=== PATIENT | male | born 1995 | race Caucasian/White ===

== ENCOUNTER → 2020-05-30 | Outpatient (CLI) | payer OTHER ==
--- NOTE | 2020-05-31 09:38 | KCIC ---
EXAMINATION: LOWER EXT JOINT WO LT INDICATIONS: Rolled left ankle laterally on 05/13/2020. Pain is lateral. TECHNIQUE: Multiplanar multisequence MRI of the left ankle was obtained without contrast. COMPARISON: Left ankle radiograph 05/22/2020 FINDINGS: BONES AND CARTILAGE: There is no acute fracture. Marrow signal is normal. The talar dome is intact. No osteochondral lesion. TENDONS: There is a longitudinal split tear of the peronus brevis tendon from the retromalleolar groove to just before the peroneal tubercle of the calcaneus, mild thickening of the peroneus longus consistent with tendinopathy, and peroneal tenosynovitis. There is mild thickening of the posterior tibial tendon distally. There is a tiny longitudinal split tear of the distal Achilles tendon with a small amount retrocalcaneal bursal fluid. The anterior extensor tendons are intact. LIGAMENTS: Anterior talofibular and calcaneofibular ligaments are completely torn. The posterior talofibular ligament is intact. The anterior inferior and posterior inferior tibiofibular ligaments are intact. There is a partial tear of the proximal superficial deltoid ligament and partial tear of the deep deltoid ligament. OTHER:Sinus tarsi and tarsal tunnel are intact. Plantar fascia is intact. Muscles are normal in signal and bulk. There is mild subcutaneous edema medially and laterally, greatest laterally. IMPRESSION: 1. Complete tear of the anterior talofibular ligament and calcaneofibular ligament. 2. Partial tears of the superficial and deep deltoid ligament. 3. Longitudinal split tear of the peroneus brevis tendon, peroneus longus tendinopathy, and peroneal tenosynovitis. 4. Mild tendinopathy of the distal posterior tibial tendon. 4. Tiny longitudinal split tear of the Achilles tendon. Electronically signed by: Cherie Pascal MD (05/31/2020 9:35 AM) [id number]
== END ==
LOC: KCIC MRI 14:09
PROVIDERS: ATTEND Orthopaedic Surgery
DX: S93.492A Sprain of other ligament of left ankle, initial encounter (principal); S93.412A Sprain of calcaneofibular ligament of left ankle, initial encounter; S93.422A Sprain of deltoid ligament of left ankle, initial encounter; S86.312A Strain of muscle(s) and tendon(s) of peroneal muscle group at lower leg level, left leg, initial encounter; S86.012A Strain of left Achilles tendon, initial encounter; M65.872 Other synovitis and tenosynovitis, left ankle and foot; X58.XXXA Exposure to other specified factors, initial encounter; Y93.89 Activity, other specified; Y92.89 Other specified places as the place of occurrence of the external cause; Y99.8 Other external cause status
CPT/HCPCS: 73721

== ENCOUNTER → 2020-07-20 | Outpatient (CLI) | payer OTHER | LOC: LAB 10:23 | PROVIDERS: ATTEND Orthopaedic Surgery | DX: Z01.812 Encounter for preprocedural laboratory examination (principal); Z20.828 Contact with and (suspected) exposure to other viral communicable diseases | CPT/HCPCS: U0003 ==

== ENCOUNTER 2020-07-24 08:13 | Day surgery (SDC) | payer OTHER ==
--- NOTE | 2020-07-23 16:00 | PDOC1 ---
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 Planted his ankle awkwardly and felt a pop. Severe pain and had to be helped off the field. Painful and swollen since then. Continues to have pain and instability despite nonoperative treatment. MRI shows peroneal brevis longitudinal split tear and torn ankle ligaments. Past Medical History Past Medical History none Past Surgical History Past Surgical History none Social History Smoke: No ALCOHOL: occassional Current Medications Current Medications Current Medications Ondansetron HCl (Zofran) 4 mg PRN Q6HRS PRN IV NAUSEA/VOMITING; Start 07/24/20 at 07:00; Stop 07/25/20 at 06:59 Fentanyl Citrate (Fentanyl 2ml Vial) 25 mcg PRN Q5MIN PRN IV MILD PAIN 1-3; Start 07/24/20 at 07:00; Stop 07/25/20 at 06:59 Fentanyl Citrate (Fentanyl 2ml Vial) 50 mcg PRN Q5MIN PRN IV MODERATE TO SEVERE PAIN; Start 07/24/20 at 07:00; Stop 07/25/20 at 06:59 Morphine Sulfate (Morphine Sulfate) 1 mg PRN Q10MIN PRN IV SEVERE PAIN 7-10; Start 07/24/20 at 07:00; Stop 07/25/20 at 06:59 Ringer's Solution 1,000 ml @ 30 mls/hr Q24H IV ; Start 07/24/20 at 07:00; Stop 07/24/20 at 18:59 Lidocaine HCl (Xylocaine-Mpf 1% 2ml Vial) 2 ml PRN 1X PRN ID PRIOR TO IV START; Start 07/24/20 at 07:00; Stop 07/25/20 at 06:59 Hydromorphone HCl (Dilaudid) 0.5 mg PRN Q10MIN PRN IV SEV PAIN, Second choice; Start 07/24/20 at 07:00; Stop 07/25/20 at 06:59 Prochlorperazine Edisylate (Compazine) 5 mg PACU PRN PRN IV NAUSEA, MRX1; Start 07/24/20 at 07:00; Stop 07/25/20 at 06:59 Bupivacaine HCl/ Epinephrine Bitart (Sensorcaine-Epi 0.25%-1:[id number] Mpf) 30 ml 1X ONCE INJ ; Start 07/24/20 at 06:00; Stop 07/24/20 at 06:01 Cefazolin Sodium 3 gm/Sodium Chloride 100 ml @ 200 mls/hr 1X PREOP PRN IV PRIOR TO PROCEDURE; Start 07/24/20 at 06:00; Stop 07/24/20 at 15:00 Allergies Allergies: Coded Allergies: No Known Drug Allergies (Unverified , 07/21/20) ROS Review of System OPHTHALMOLOGY: Blurred vision none. Double vision denies. Change in vision none. ENT: Hearing loss none. Change in voice denies. Rhinorrhea none. CARDIOLOGY: Palpitations none. Shortness of breath denies. Chest pain denies. CONSTITUTIONAL: Fever denies. Chills denies. Weight gain denies. Weakness none. weight loss denies. Fatigue none. GASTROENTEROLOGY: Diarrhea denies. Vomiting none. Dysphagia none. UROLOGY: Voiding normally yes. Hematuria none. MUSCULOSKELETAL: Chronic back or neck pain denies. Swelling of the feet, hands, ankles and /or legs denies. Joint pain left ankle. Tingling/numbness no. DERMATOLOGY: Rash denies. Lumps none. NEUROLOGY: Dizziness/lightheadedness denies. Double vision, temporary blindness denies. Tingling/numbness none. PSYCHOLOGY: Change in mood or personality denies. Memory loss none. ENDOCRINOLOGY: Obesity denies. Fatigue none. Weight loss none. HEMATOLOGY/LYMPH: Hepatitis denies. Enlarged lymph nodes denies. Physical Exam General: Alert, Oriented X3 HEENT: Atraumatic Lungs: Normal air movement Heart: RRR Extremities: Other (Patient is able to partial weight bear on the LEFT ankle in the cam walker. The overall alignment is swollen and slightly grossly enlarged at the joint. There is edema laterally at the distal fibula. Maximal tenderness over the peroneal tendons and retinaculum throughout their course and at the calcaneofibular ligament, anterior talofibular ligament. Tender over the medial malleolus and deltoid ligaments. Tendons do not sublux and his Achilles' appears intact. Peroneal tendons painful with stress but not completeley torn. Active range of motion at the ankle is decreased. Aside from the edema, the skin, pulses, and sensation are normal at the ankle, foot, and toes. ) Skin: No significant lesion Neuro: Normal speech, Sensation intact Images Images PATIENT: MELONIE HOOKS ACCOUNT: [id number] : 1995 [facility] AGE: 25 SEX: M EXAM STATUS: REG CLI ORD. PHYSICIAN: OSVALDO MARIE MD REASON: LEFT ANKLE INJURY PROCEDURE: LOWER EXT JOINT WO LT EXAMINATION: LOWER EXT JOINT WO LT INDICATIONS: Rolled left ankle laterally on 05/13/2020. Pain is lateral. TECHNIQUE: Multiplanar multisequence MRI of the left ankle was obtained without contrast. COMPARISON: Left ankle radiograph 05/22/2020 FINDINGS: BONES AND CARTILAGE: There is no acute fracture. Marrow signal is normal. The talar dome is intact. No osteochondral lesion. TENDONS: There is a longitudinal split tear of the peronus brevis tendon from the retromalleolar groove to just before the peroneal tubercle of the calcaneus, mild thickening of the peroneus longus consistent with tendinopathy, and peroneal tenosynovitis. There is mild thickening of the posterior tibial tendon distally. There is a tiny longitudinal split tear of the distal Achilles tendon with a small amount retrocalcaneal bursal fluid. The anterior extensor tendons are intact. LIGAMENTS: Anterior talofibular and calcaneofibular ligaments are completely torn. The posterior talofibular ligament is intact. The anterior inferior and posterior inferior tibiofibular ligaments are intact. There is a partial tear of the proximal superficial deltoid ligament and partial tear of the deep deltoid ligament. OTHER:Sinus tarsi and tarsal tunnel are intact. Plantar fascia is intact. Muscles are normal in signal and bulk. There is mild subcutaneous edema medially and laterally, greatest laterally. IMPRESSION: 1. Complete tear of the anterior talofibular ligament and calcaneofibular ligament. 2. Partial tears of the superficial and deep deltoid ligament. 3. Longitudinal split tear of the peroneus brevis tendon, peroneus longus tendinopathy, and peroneal tenosynovitis. 4. Mild tendinopathy of the distal posterior tibial tendon. 4. Tiny longitudinal split tear of the Achilles tendon. Electronically signed by: Cherie Pascal MD (05/31/2020 9:35 AM) [id number] DICTATED and SIGNED BY: CHERIE PASCAL MD DATE: 05/31/20 0935 VTE Prophylaxis Ordered VTE Prophylaxis Devices: Yes VTE Pharmacological Prophylaxi: Yes Assessment/Plan Assessment/Plan The patient has a peroneal brevis tendon split tear, and lateral ankle instability of the ATFL and CFL. He is tried nonoperative treatment without success. I recommend surgical treatment which includes the peroneal brevis tendon repair, likely a longitudinal repair, and then rastafari of the ATFL and CFL, modified Brostrom procedure with suture anchors in the posterior fibula. We have previously discussed the risks of surgery including infection, scarring, neurovascular injury, blood clots, persistent instability, continued pain or weakness, or other potential surgical or anesthetic complications. He is here today for elective left ankle surgery. Justifications for Admission Other Justification OSVALDO MARIE MD Jul 23, 2020 16:00
[~2020-07-24] VITALS: Ht 182.9 cm; Wt 132.0 kg
[~2020-07-24 08:13] MED LIST: BUPIVACAINE-EPI 0.25%-1:200000 MPF 30 ML VIAL. INJ ONE; HYDROmorphone 2 MG/ML VIAL IV PRN; IV RINGERS,LACTATED 1000ML 1,000 ML IV SCH; LIDOCAINE 1% PF 2 ML VIAL. ID PRN; MORPHINE SULFATE 2 MG/ML VIAL. IV PRN; ONDANSETRON PF 4 MG/2 ML VIAL. IV PRN; PROCHLORPERAZINE 10 MG/2 ML VIAL. IV PRN; fentaNYL PF VIAL 100 MCG/2 ML VIAL IV PRN
[2020-07-24] MEDS ORDERED: fentaNYL PF VIAL 100 MCG/2 ML VIAL ONE ×3 (08:57→11:45)
[2020-07-24] MEDS ORDERED: PROPOFOL 10 MG/ML (20ML) VIAL. IV ONE (08:57)
[2020-07-24] MEDS ORDERED: LIDOCAINE 2% PF 5 ML VIAL. ONE (08:57)
[2020-07-24] MEDS ORDERED: SEVOFLURANE 31 TO 60 MINUTES. IH ONE (09:53)
[2020-07-24] MEDS ORDERED: DEXAMETHASONE SOD PHOS 4 MG/ML VIAL ONE (09:53)
[2020-07-24] MEDS ORDERED: ONDANSETRON PF 4 MG/2 ML VIAL. ONE (09:53)
--- NOTE | 2020-07-24 11:35 | PDOC ---
BRIEF OPERATIVE NOTE Date: Jul 24, 2020 Pre-Op Diagnosis Left ankle lateral ligament instability and recurrent sprain Left ankle peroneal tendon high-grade partial tear Post-Op Diagnosis Same Procedure Performed Left ankle peroneal tendon debridement and repair Left ankle modified Brostrm procedure with suture anchors Surgeon Margarita Araujo Anesthesia Type: General Blood Loss 50 mL Specimens Obtained none Findings Fibertak DX Suture Rosalia with 1.3 mm suture tape x2 Amnion Tourniquet time 42 minutes Complications none OSVALDO MARIE MD Jul 24, 2020 11:35
[2020-07-24] MEDS: fentaNYL PF VIAL 100 MCG/2 ML VIAL IV PRN ×2 (11:47→12:11)
[2020-07-24] MEDS ORDERED: oxyCODONE/APAP 5/325 1 TAB TABLET ONE (12:22)
[2020-07-24 12:24] VITALS: BP 121/77
[2020-07-24] MEDS ORDERED: oxyCODONE/APAP 5/325 1 TAB TABLET PO ONE (12:30)
--- NOTE | 2020-07-24 16:43 | PDOC4 ---
Operative Note Operative Note Date of Procedure: July 24, 2020 Pre-Op Diagnosis: * Spontaneous rupture of flexor tendons, left ankle and foot (peroneus brevis split tendon tear) M66.372 * Sprain of calcaneofibular ligament of left ankle, initial encounter S93.412A Post-Op Diagnosis: Same Procedure: * Repair, flexor tendon, leg; primary, without graft, peroneus brevis CPT 39101 * Repair, secondary, disrupted ligament, ankle, collateral, modified Brostrm procedure. 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 He had a severe ankle sprain, with more pain than is typical for an ankle sprain, initially felt to have a fracture. He was rehabilitated for the ankle sprain, but continued to have pain and instability. MRI shows high-grade tears of the anterior talofibular ligament and calcaneofibular ligament, as well as a split tendon tear of the peroneus brevis. He tried nonoperative management with a cam walker and rehabilitation without success. He and I discussed operative treatment to include tendon debridement and repair, and secondary repair of the ankle ligaments. We discussed risks benefits and alternatives. We discussed the potential risks of infection, neurovascular injury which could include numbness around the lateral foot area, bleeding, blood clots, stiffness, retear, continued pain weakness or instability or other potential surgical or anesthetic complications. All of his questions about surgery were answered and he desired to proceed. Written consent was obtained. Procedure in Detail: The patient was identified in the preoperative holding area. The correct left lower extremity was marked by me. He was taken to the operating room where a general anesthetic was used. Preoperative antibiotics were given intravenously. A timeout procedure was performed. A tourniquet was placed on the upper thigh. The limb was prepared circumferentially with ChloraPrep solution and sterile drapes were applied. A sterile glove was placed over the toes and heel. An Esmarch bandage was used to exsanguinate the limb and the tourniquet was inflated to 300 mmHg. A curvilinear incision was made following the course of the peroneal tendons slightly posterior to the fibula. Sharp dissection was used and Bovie electrocautery was used for hemostasis. The sural nerve was carefully retracted and protected throughout the case. The peroneal sheath and superior peroneal retinaculum were divided, and the peroneal tendons easily identified. The peroneus brevis, closer to the bone, had a longitudinal split tear. This was a tear where the outer tubular portion of the tendon had split, exposing the inner contents of the tendon, almost as if the casing on a sausage had been split and the inner contents were now exposed. I carefully debrided a few of the nonviable fibers. Some of the low-lying peroneus brevis muscle was involved and debrided where it was interfering with the repair. I then did a longitudinal running repair of the outer portion of the tendon, using #2-0 Ethibond suture. This nicely retubularized the tendon and placed the inner contents of the tendon back inside where they belong. The peroneus longus appears normal. There is no evidence of dislocation, and the posterior groove on the fibula for the peroneal tendon seems adequate to prevent dislocation without need for deepening osteotomy procedure. I did not debride very much tendon and there is no need for a tenodesis. Next the calcaneofibular and anterior talofibular ligaments were secondarily repaired. They had been detached from the anterior tibia. I used an oblique fascial and periosteal incision along the distal fibula, distally and anteriorly, and reflected the remaining scar tissue of the anterior talofibular and calcaneofibular ligaments. The ligaments themselves are quite hill and I did not feel that an internal brace was warranted. Their attachment on the talus seems normal. I then used an Arthrex suture anchor technique to repair and reconstruct the anterior talofibular and calcaneofibular ligaments. The Arthrex fiber tack DX suture anchor with 1.3 mm suture tape devices were used. 1 of these was placed on the anterior distal fibula and one at the distal fibula, to repair the anterior talofibular and calcaneofibular ligaments. A MasonAllen suture pattern was used, with the sutures exiting the nonarticular side of the tendon, and my lead dental assistant Andre held the ankle in an everted position while the sutures were tied, restoring the normal anatomy of the anterior talofibular and calcaneofibular ligaments. An Arthrex Amnion Matrix was carefully wrapped around the peroneus brevis tendon and sutured in place with #2-0 Vicryl suture, to prevent adhesions and to pr omote healing of the tendon. There was satisfactory depth of the peroneal groove and no need for fibular osteotomy deepening procedure. The tourniquet was released. Bovie electrocautery was used carefully for hemostasis. Copious saline irrigation was used. Outer gloves were changed. The superior peroneal retinaculum was repaired with 0 Vicryl [id number] sutures. The remaining periosteum and fascia at the fibular attachment of the anterior talofibular and calcaneofibular ligaments was reapproximated with 0 Vicryl sutures. The peroneal tendon sheath was repaired with 0 Vicryl suture. The deep subcutaneous tissues were reapproximated with 0 Vicryl sutures. My lead dental assistant closed the subcutaneous tissues with #2-0 Vicryl. He then used 3-0 Prolene sutures in the skin at my instruction. Injected 30 mL of 0.25% bupivacaine with epinephrine into the skin edges. Xeroform and a sterile dressing were applied along with a posterior splint with the ankle everted. Needle and sponge counts were correct. There were no apparent complications. OSVALDO AVILA MD Jul 24, 2020 16:42
== END 2020-07-24 13:00 | disposition home or self-care (01) ==
LOC: SURG 08:13
PROVIDERS: ATTEND Orthopaedic Surgery
DX: S93.412A Sprain of calcaneofibular ligament of left ankle, initial encounter (principal); M66.372 Spontaneous rupture of flexor tendons, left ankle and foot; Z87.891 Personal history of nicotine dependence; Z79.899 Other long term (current) drug therapy; Z98.890 Other specified postprocedural states; X58.XXXA Exposure to other specified factors, initial encounter; Y93.89 Activity, other specified; Y92.89 Other specified places as the place of occurrence of the external cause; Y99.8 Other external cause status
CPT/HCPCS: 27658; 27698; C1713; J1100; J2405; J2704; J3010; J3490; Q4100